=== PATIENT | male | born 1965 | race Caucasian/White ===

== ENCOUNTER → 2024-12-29 | Day surgery (SDC) | payer OTHER ==
[2024-12-25 10:32] LABS: BASOPHILS % 0.7 % (0.0-1.0); EOSINOPHILS % 1.2 % (0.0-6.0); LYMPHOCYTES % 19.3 % (18.0-39.1); MONOCYTES % 9.4 % (4.4-11.3); NEUTROPHILS % 69.2 % (38.7-80.0); RED CELL DISTRIBUTION WIDTH 13.2 % (11.7-14.4)
[2024-12-25 11:03] LABS: EST GLOMERULAR FILTRATION RATE 84.0 ML/MIN (>=60)
[~2024-12-29] MED LIST: ACETAMINOPHEN 1000 MG/100 ML 100 ML IV ONE; CEFAZOLIN SODIUM 2 GM ONE; FENOFIBRIC ACI135 MG PO; FENTANYL CITRATE/PF 100MCG/2 ML INJ ONE; LABETALOL HCL 20 ML ONE; LACTATED RINGER'S 1,000 ML ONE; LEVOTHYROXINE50 MCG PO; LIDOCAINE HCL 2% LOCAL INJ 5 ML SDV VIAL INJ ONE; MIDAZOLAM HCL 2 MG/2 ML VIAL ONE; OMEPRAZOLE40 MG PO; PROPOFOL IV EMULSION 10 MG/ML 20 ML VIAL ONE; SEVOFLURANE INHAL SOLN 250 ML PEN BTL ONE; SILDENAFIL PO
[2024-12-29 10:30] VITALS: BP 120/74; PULSE 62; RESP 16; O2SAT 98
[2024-12-29] MEDS: HYDROCODONE/APAP 5MG-325MG TAB ONE (10:30)
== END | disposition home or self-care (01) ==
LOC: OR 05:17
PROVIDERS: ATTEND Orthopaedic Surgery
DX: S83.232A Complex tear of medial meniscus, current injury, left knee, initial encounter (principal); S83.282A Other tear of lateral meniscus, current injury, left knee, initial encounter; X58.XXXA Exposure to other specified factors, initial encounter; M94.262 Chondromalacia, left knee; M65.962 Unspecified synovitis and tenosynovitis, left lower leg; E03.9 Hypothyroidism, unspecified; K21.9 Gastro-esophageal reflux disease without esophagitis; Z79.1 Long term (current) use of non-steroidal anti-inflammatories (NSAID); Z79.890 Hormone replacement therapy; Z79.899 Other long term (current) drug therapy; Z01.810 Encounter for preprocedural cardiovascular examination; Z01.812 Encounter for preprocedural laboratory examination
CPT/HCPCS: 29882; 29999; 36415; 71046; 80053; 85025; 93005; J0131; J2003; J2704; J3010; J3490; J7121; J2250